=== PATIENT | female | born 1970 | race Caucasian/White ===

== ENCOUNTER 2019-06-24 10:52 | Outpatient (CLI) | payer MEDICAID, SELFPAY ==
--- NOTE | 2019-06-24 10:48 | DI.RAD_ITS ---
SYMPTOM/DIAGNOSIS: LT WRIST INJURY LEFT WRIST: 06/24 Three views were obtained. Carpal alignment appears within normal limits. No fracture identified.
== END 2019-06-24 11:12 ==
PROVIDERS: PCP Nurse Practitioner Family; Visit Provider Physician Assistant
DX: M25.532 Pain in left wrist (principal)
CPT/HCPCS: 73110

== ENCOUNTER 2019-08-15 00:13 | Outpatient (CLI) | payer MEDICAID, SELFPAY ==
--- NOTE | 2019-08-15 08:45 | DI.MRI_ITS ---
EXAM: MR UPPER JOINT LT WO CLINICAL HISTORY: L wrist injury M77.8 ENTHESOPATHIES. TECHNIQUE: Multiplanar multisequence MRI was performed. FINDINGS: MR imaging of the forearm and wrist was performed. The images are of limited technical quality. No gross bony signal abnormality is seen involving the bones of the forearm or carpus. No gross tendino tino or tendon tear identified. No significant ligamentous abnormality seen as visualized and align ment appears within normal limits. There is an approximately 6 millimeter in diameter, presumed gang lion cyst seen on the volar aspect of the radial styloid. Question of 4 millimeter ganglion cyst als o noted associated with volar aspect of ulnar styloid. IMPRESSION: Scan of limited technical quality. Volar ganglion cysts associated with radial styloid and ulnar styl oid locations. No gross tendinopathy identified.
== END 2019-08-15 00:33 ==
PROVIDERS: PCP Nurse Practitioner Family; Visit Provider Orthopaedic Surgery
DX: M77.8 Other enthesopathies, not elsewhere classified (principal); M67.432 Ganglion, left wrist
CPT/HCPCS: 73221